=== PATIENT | female | born 2000 | race African-American/Black ===

== ENCOUNTER 2024-01-21 05:33 | Emergency (ER) | payer OTHER ==
--- OUTSIDE RECORDS SUMMARY | 2024-01-21 05:38 | XMS REPORT | Continuity of Care Document ---
Author Name Unknown Address [address] [facility] [address] [place] [address] [facility] thconnect Address [address] [place] [address] Care Team Providers Care Cold Roller Name Role Phone NO PHYSICIAN, . Primary Care Physician Unavailab ASHLEY Rodriguez Attending Clinician Unavailab ROGER Hatfield Attending Clinician Unavailable MAKI BLANCAS Attending Clinician Unavail able TERENCE THAYER Attending Clinician Unavailab sergio Kumar Attending Clinician Unavailable WAQAS MENDOZA Attending Clinician Unavailab sergio Baugh_jace Attending Clinician UnavailPRESTON Peace Attending Clinician Unavailable GC_PHP_Kavya_Harshad Attending Clinician Unavailable OSCAR RAMIREZ Attending Clinician Unavailable LAXMI GE Attending Clinician Unav WAQAS Ortega Attending Clinician Unavailable RHEA VALDEZ Attending Clinician Unavailable MARQUEZ GE Attending Clinician Unav ailLA NENA Humphries Attending Clinician Unavailab Kierra Menjivar Attending Clinician Unavailable Stacy Admitting Clinician Unavailable Amauri_jace Admitting Clinician Unavailabl e GC_PHP_Amaya_Z Admitting Clinician Unavailable Kierra HILLMAN Admitting Clinician Unavailable Payers Payer Name Policy Type Policy Number Effective Date Expirati on Date Source [place] [id number] [facility] [place]ICAID [facility] [id number] 2018 00:00:00 [facility] (MEDICAID HMO) [id number] 2018 00:00:00 Problems Condition Name Condition Details Condition Category Status Onset Date Resolution Date Last Treatment Date Treating Clinician Comments Source Acute sinusitis Acute Sinusitis Problem Active 2023-02 00:00: 00 [facility] Cough Cough Problem Active 2023-02 00:00: 00 [facility] Heart murmur Heart Murmur Problem Active 10-03 00:00: 00 [facility] Electrocar diogram abnormal Electrocar diogram Abnormal Problem Active 10-03 00:00: 00 [facility] Contusion of left upper arm [facility] Injury of head Problem [facility] Hypokalemi a Problem [facility] Left[facility]sided face [facility] Otitis externa [facility] Threatened Problem [facility]omiting Problem [facility] Constipati on [facility] Cyclic vomiting syndrome Problem [facility] Increased bilirubin level Problem [facility] Cyst of ovary Problem [facility] Allergies, Adverse Reactions, Alerts Allergy Name Allergy Type Status Severity Reaction(s) Onset Date Inactive Date Treating Clinician Comments Source KNA Allergy to substanc e Active Unknown 09-09 00:00: 00 [facility] Social History Smoking Status Start Date Stop Date Source Never Smoker [facility] Medications Ordered Medication Name Filled Medication Name Start Date Stop Date Current Medication? Ordering Clinician Indication Dosage Frequency Signature (SIG) Comments Components Source Metoclopram susie Hcl (Reglan 10 Mg*) 10 Mg TAB Metoclopram susie Hcl (Reglan 10 Mg*) 10 Mg TAB 10-31 12:55: 00 Yes 10 [facility] Doxylamine- Pyridoxine (Diclegis) 1 Tab Tablet Doxylamine- Pyridoxine (Diclegis) 1 Tab Tablet 2022-02 11:08: [address] [facility] promethazin e-DM 6.25 mg-15 mg/5 mL oral syrup Take 5 mL every 4 hours by oral route for 5 days. promethazin e-DM 6.25 mg-15 mg/5 mL oral syrup Take 5 mL every 4 hours by oral route for 5 days. No 5mL Q4H promethazi ne-DM 6.25 mg-15 mg/5 mL oral syrup Take 5 mL every 4 hours by oral route for 5 days. [facility] cephalexin 500 mg capsule cephalexin 500 mg capsule No cephalexin 500 mg capsule [facility] doxycycline hyclate 50 mg capsule doxycycline hyclate 50 mg capsule No doxycyclin e hyclate 50 mg capsule [facility] doxycycline monohydrate 100 mg tablet Take 1 tablet twice a day by oral route for 7 days. doxycycline monohydrate 100 mg tablet Take 1 tablet twice a day by oral route for 7 days. No 1 BID doxycyclin e monohydrat e 100 mg tablet Take 1 tablet twice a day by oral route for 7 days. [facility] fluticasone propionate 50 mcg/actuati on nasal spray,suspe nsion [place] 1 spray every day by intranasal route for 30 days. fluticasone propionate 50 mcg/actuati on nasal spray,suspe nsion Beul[place] 1 spray every day by intranasal route for 30 days. No fluticason e propionate 50 mcg/actuat ion nasal spray,susp ension [place]ulah 1 spray every day by intranasal route for 30 days. [facility] methylpredn isolone 4 mg tablets in a dose pack Take 1 dose pk by oral route. methylpredn isolone 4 mg tablets in a dose pack Take 1 dose pk by oral route. No methylpred nisolone 4 mg tablets in a dose pack Take 1 dose pk by oral route. [facility] metronidazo le 500 mg tablet Take 1 tablet twice a day by oral route for 7 days. metronidazo le 500 mg tablet Take 1 tablet twice a day by oral route for 7 days. No 1 BID metronidaz ole 500 mg tablet Take 1 tablet twice a day by oral route for 7 days. [facility] ondansetron 4 mg disintegrat ing tablet ondansetron 4 mg disintegrat ing tablet No ondansetro n 4 mg disintegra ting tablet [facility] Xulane 150 mcg-35 mcg/24 hr transdermal patch Apply 1 patch every week by transdermal route. Xulane 150 mcg-35 mcg/24 hr transdermal patch Apply 1 patch every week by transdermal route. No 1patch( es) Q1W Xulane 150 mcg-35 mcg/24 hr transderma l patch Apply 1 patch every week by transderma l route. [facility] Immunizations Ordered Immunization Name Filled Immunization Name Date Status Comments Source DTaP DTaP Unknown Completed [facility] Hep A, ped/adol, 2 dose Hep A, ped/adol, 2 dose Unknown Completed [facility] pneumococcal conjugate PCV 7 pneumococcal conjugate PCV 7 Unknown Completed [facility] Hib (PRP-T) Hib (PRP-T) Unknown Completed [facility] varicella varicella Unknown Completed [facility] MMR MMR Unknown Completed [facility] HPV9 HPV9 Unknown Completed [facility] influenza, injectable, quadrivalent influenza, injectable, quadrivalent Unknown Completed [facility] HPV, quadrivalent HPV, quadrivalent Unknown Completed [facility] influenza, trivalent, adjuvanted influenza, trivalent, adjuvanted Unknown Completed [facility] influenza, live, intranasal influenza, live, intranasal Unknown Completed [facility] IPV IPV Unknown Completed [facility] Vital Signs Vital Name Observation Time Observation Value Comments S ource Body Weight 2024-01-09 00:00:00 126.7 [lb_av] [facility] Height 2024-01-09 00:00:00 65 [in_i] [facility] BP Diastolic 2024-01-09 00:00:00 84 mm[Hg] [facility] BP Systolic 2024-01-09 00:00:00 134 mm[Hg] [facility] BMI (Body Mass Index) 2024-01-09 00:00:00 21.1 kg/m2 [facility] Height 2023-12-11 00:00:00 65 [in_i] [facility] BP Diastolic 2023-12-11 00:00:00 85 mm[Hg] [facility] Body Weight 2023-12-11 00:00:00 2448 [oz_av] [facility] BMI (Body Mass Index) 2023-12-11 00:00:00 25.5 kg/m2 [facility] BP Systolic 2023-12-11 00:00:00 128 mm[Hg] [facility] Height 2023-11-03 02:37:00 165.271762 cm [facility] Weight 2023-11-03 02:37:00 68.608107 kg [facility] BMI (Body Mass Index) 2023-11-03 02:37:00 25.3 kg/m2 [facility] Height 2023-11-03 02:37:00 165.619330 cm [facility] Weight 2023-11-03 02:37:00 68.392003 kg [facility] BMI (Body Mass Index) 2023-11-03 02:37:00 25.3 kg/m2 [facility] Height 2023-11-01 09:17:00 165.283676 cm [facility] Weight 2023-11-01 09:17:00 68.442970 kg [facility] BMI (Body Mass Index) 2023-11-01 09:17:00 25.3 kg/m2 [facility] Height 2023-09-26 00:00:00 65 [in_i] [facility] BMI (Body Mass Index) 2023-09-26 00:00:00 25.1 kg/m2 [facility] BP Diastolic 2023-09-26 00:00:00 98 mm[Hg] [facility] Body Weight 2023-09-26 00:00:00 150.6 [lb_av] [facility] BP Systolic 2023-09-26 00:00:00 144 mm[Hg] [facility] BP Diastolic 2021-11-26 00:00:00 78 mm[Hg] [facility] Height 2021-11-26 00:00:00 65 [in_i] [facility] BMI (Body Mass Index) 2021-11-26 00:00:00 24.5 kg/m2 [facility] BP Systolic 2021-11-26 00:00:00 111 mm[Hg] [facility] Body Weight 2021-11-26 00:00:00 2355 [oz_av] [facility] BP Diastolic 2020-12-10 00:00:00 69 mm[Hg] [facility] Height 2020-12-10 00:00:00 65 [in_i] [facility] BMI (Body Mass Index) 2020-12-10 00:00:00 23.9 kg/m2 [facility] BP Systolic 2020-12-10 00:00:00 127 mm[Hg] [facility] Body Weight 2020-12-10 00:00:00 143.8 [lb_av] [facility] Height 2019-12-12 00:00:00 65 [in_i] [facility] BMI (Body Mass Index) 2019-12-12 00:00:00 26.6 kg/m2 [facility] Body Weight 2019-12-12 00:00:00 2560 [oz_av] [facility] Encounters Start Date/Time End Date/Time Encounter Type Admission Type Attending [facility] Care Facility Care Department Encounter ID Source 2024-01-09 00:00:00 2024-01-09 00:00:00 Preston Diaz MD: [address], [address], [place] [address] , Ph. [phone] [facility] [id number] [facility] 2023-12-31 07:19:00 2023-12-31 09:50:00 Emergency ER ASHLEY KEY [facility] [id number] [facility] 2023-12-11 00:00:00 2023-12-11 00:00:00 Waqas Mendoza, DISPENSER OPERATOR: [address], [address], [place] [address] , Ph. [facility] [id number] [facility] 2023-11-03 02:29:00 2023-11-03 06:33:00 Emergency ER VIRAJ ROGER [facility] [id number] [facility] 2023-11-03 02:29:00 2023-11-03 06:33:00 Departed Emergency Room [facility] [id number] [facility] 2023-11-01 09:03:00 2023-11-01 13:08:00 Emergency ER MAKI BLANCAS [facility] [id number] [facility] 2023-11-01 09:03:00 2023-11-01 13:08:00 Departed Emergency Room [facility] [id number] [facility] 2023-09-26 00:00:00 2023-09-26 00:00:00 Waqas Loaiza, DISPENSER OPERATOR: [address], [place] [address] , Ph. [facility] [id number] [facility] 2022-12-07 21:51:00 2022-12-08 00:22:00 Emergency ER TERENCE THAYER [facility] [id number] [facility] 2022-11-06 08:32:00 2022-11-06 11:25:00 Emergency ER ASHLEY KEY [facility] [id number] [facility] 2021-11-29 00:00:00 2021-11-29 00:00:00 Outpatient Hawkins_M [facility] MMG [id number] [facility] 2021-11-29 00:00:00 2021-11-29 00:00:00 Outpatient Hawkins_M MMG MMG [id number] [facility] 2021-11-29 00:00:00 2021-11-29 00:00:00 Outpatient Hawkins_M MMG MMG [id number] [facility] 2021-11-26 10:05:00 2021-11-26 10:05:00 Outpatient WAQAS BANGURA [facility] [id number] [facility] 2021-11-26 00:00:00 2021-11-26 00:00:00 Outpatient Hawkins_M MMG MMG [id number] [facility] 2021-11-26 00:00:00 2021-11-26 00:00:00 Waqas Mendoza, DISPENSER OPERATOR: [address], [place] [address] , Ph. MMG [place] [facility] [id number] [facility] 2021-11-25 00:00:00 2021-11-25 00:00:00 Outpatient Hawkins_M MMG MMG [id number] [facility] 2021-11-18 00:00:00 2021-11-18 00:00:00 Outpatient Hawkins_M MMG MMG [id number] [facility] 2020-12-10 05:43:00 2020-12-10 05:43:00 Outpatient Obisesan_ad ekunbi [facility] [id number] [facility] 2020-12-10 00:00:00 2020-12-10 00:00:00 Waqas Loaiza, DISPENSER OPERATOR: [address], [place] [address] , Ph. [facility] DINING ROOM CASHIER [id number] [facility] 2020-12-09 09:48:00 2020-12-09 09:48:00 Outpatient Obisesan_ad ekunbi [facility] [id number] [facility] 2020-12-07 02:00:00 2020-12-07 02:00:00 Outpatient Obisesan_ad ekunbi [facility] [id number] [facility] 2020-09-26 17:13:00 2020-09-26 21:02:00 Emergency ER PRESTON DALY [facility] [id number] [facility] 2020-03-23 00:00:00 2020-03-23 00:00:00 Outpatient GC_PHP_Amay a_Z PRIV PRIV [id number] [facility] 2019-12-21 11:09:00 2019-12-21 11:09:00 Outpatient Obisesan_ad ekunbi [facility] [id number] [facility] 2019-12-21 00:00:00 2019-12-21 00:00:00 Nereyda Mota, DISPENSER OPERATOR: [address], [place] [id number] , [facility]. [facility] [id number] [facility] 2019-12-12 09:32:00 2019-12-12 09:32:00 [id number] [facility] 2019-12-12 00:00:00 2019-12-12 00:00:00 Jace Baugh, DISPENSER OPERATOR: [address] [place] [address] , Ph. [facility] [id number] [facility] 2019-01-01 09:03:00 2019-01-01 09:03:00 Outpatient BRUNO RAMIRZE OSCAR [facility] [id number] [facility] 2017 08:05:00 2017 08:05:00 Outpatient BRUNO BLANKENSHIP LAXMI Epps [facility] [id number] [facility] 2015-08-13 13:21:00 2015-08-13 13:21:00 Outpatient BRUNO WAQAS LOAIZA [facility] [id number] [facility] 2013-08-03 20:10:00 2013-08-03 21:50:00 Emergency ER RHEA VALDEZ [facility] [id number] [facility] 2010-04-26 07:30:00 2010-04-26 07:30:00 Outpatient BRUNO EppsSALLIEKAYLIN [facility] [id number] [facility] 2008-02-01 17:38:00 2008-02-01 21:27:00 Emergency ER LA NENA ROMANO [facility] [id number] [facility] 2003-11-28 11:01:00 2003-11-28 11:01:00 Outpatient MARQUEZ MCMAHAN [facility] [id number] [facility] 2002 15:55:00 2002 15:55:00 Outpatient Kierra SALAZAR [facility] [id number] [facility] 2002 15:02:00 2002 12:45:00 Inpatient Kierra PARTIDA [facility] [id number] [facility] Results Test Description Test Time Test Comments Results Result Co mments Source [facility], [id number] 16:07:05* Test Item Value Reference Range Interpretation Comme nts Leukocytes (test code = Leukocytes) Small Nitrite (test code = Nitrite) negative Urobilinogen (test code = Urobilinogen) 1 Protein (test code = Protein) Negative pH (test code = pH) 7.0 Blood (test code = Blood) Moderate Specific Campton (test code = Specific [place]pton) 1.020 Ketone (test code = Ketone) Negative Bilirubin (test code = Bilirubin) Negative Glucose (test code = Glucose) Negative Appearance (test code = Appearance) Clear Color (test code = Color) Yellow [facility] Gr[facility]regnancy test, [id number] 16:06:15* Test Item Value Reference Range Interpretation Comme nts Test (test code = Test) negative [facility],urine pres id [id number] 09:08:00* Test Item Value Reference Range Interpretation Comme nts culture,urine (test code = culture,urine) SCANT SKIN СВЕТЛАНА PRESENT. PATHOGEN NOT PRESENT AT [address] [facility] Groupchl/[id number] 10:06:00* Test Item Value Reference Range Interpretation Comme nts NG (test code = NG) NG NOT DETECTED CT (test code = CT) CT DETECTED [facility] GroupBilirubin.direct [Mass/volume] in Serum or Plasma 2023-12-31 09:20:00* Test Item Value Reference Range Interpretation Comme nts bilirubin,direct (test code = bilirubin,direct) 0.37 mg/dL 0.0-0.3 H [facility] Hospitalflu/RSV/covid [id number] 08:43:00* Test Item Value Reference Range Interpretation Comme nts RSV xpress (test code = RSV xpress) RSV NEGATIVE covid-19 inhouse (test code = covid-19 inhouse) flu A (test code = flu A) FLU A NEGATIVE flu B (test code = flu B) FLU B NEGATIVE [facility] HospitalComprehensive [facility] 2000 panel - Serum or Plasma 2023-12-31 08:27:00* Test Item Value Reference Range Interpretation Comme nts glucose (test code = glucose) 109 mg/dL 74-106 H blood urea nitrogen (test co de = blood urea nitrogen) 11 mg/dL 6-20 osmolality calculated,serum (test code = osmolality calculated,serum) 276 mOsm/kg 280-300 L creatinine (test code = creatinine) 0.63 mg/dL 0.50-0.90 glomerular filtration rate ( test code = glomerular filtration rate) > 60.00 BUN/creatinine ratio (test c ode = BUN/creatinine ratio) 17.5 12.0-20.0 sodium level (test code = so dium level) 138 mmol/L 135-145 potassium level (test code = potassium level) 3.7 mmol/L 3.5-5.2 chloride level (test code = chloride level) 100 mmol/L 98-108 CO2 (test code = CO2) 25 mmol/L 21-32 anion gap (test code = anion gap) 16.7 mEq/L 12.0-20.0 calcium level (test code = calcium level) 9.1 mg/dL 8.6-10.0 total protein (test code = t otal protein) 8.0 g/dL 6.6-8.7 albumin (test code = albumin) 4.2 g/dL 3.5-5.2 globulin (test code = globulin) 3.8 g/dL 1.5-4.5 A/G ratio (test code = A/G ratio) 1.1 >1.0 bilirubin,total (test code = bilirubin,total) 2.1 mg/dL 0.0-1.2 H AST/SGOT (test code = AST/SGOT) 16 U/L 15-32 ALT/SGPT (test code = ALT/SGPT) 9 U/L 0-33 alkaline phosphatase, total (test code = alkaline phosphatase, total) 78 U/L 35-105 [facility]2024-11-24 08:27:00* Test Item Value Reference Range Interpretation Comme [facility] lipase (test code = lipase) 13 U/L 13-60 [facility] panel drug [id number] 08:14:00* Test Item Value Reference Range Interpretation Comme nts drug screen note (test code = drug screen note) . amphetamines screen urine (t est code = amphetamines screen urine) NEGATIVE negative barbiturates, urine quant. ( test code = barbiturates, urine quant.) NEGATIVE negative benzodiazepines screen urine (test code = benzodiazepines screen urine) NEGATIVE negative cannabinoids (test code = cannabinoids) POSITIVE negative A cocaine (test code = cocaine) NEGATIVE negative opiates (test code = opiates) NEGATIVE negative phencyclidine (test code = phencyclidine) NEGATIVE negative methadone (test code = methadone) NEGATIVE negative propoxyphene (test code = propoxyphene) NEGATIVE negative oxycodone (test code = oxycodone) NEGATIVE negative hydrocodone (test code = hydrocodone) NEGATIVE negative fentanyl (test code = fentanyl) NEGATIVE negative [facility] W Auto Differential panel - [id number] 08:09:00 * Test Item Value Reference Range Interpretation Comme [facility] white blood count (test code = white blood count) 9.5 K/uL 4.0-11.5 red blood count (test code = red blood count) 4.46 M/uL 3.80-5.20 hemoglobin (test code = hemoglobin) 12.7 g/dL 10.5-15.7 hematocrit (test code = hematocrit) 39.6 % 34.0-50.0 mean corpuscular volume (christian t code = mean corpuscular volume) 88.8 fL 86.0-100.0 mean corpuscular hemoglobin (test code = mean corpuscular hemoglobin) 28.5 pg 26.2-33.4 mean corpuscular HGB conc (t est code = mean corpuscular HGB conc) 32.1 g/dL 30.0-34.0 red cell distribution width (test code = red cell distribution width) 14.5 % 12.0-15.5 platelet count (test code = platelet count) 292 K/uL 165-450 mean platelet volume (test c ode = mean platelet volume) 9.4 fL 9.4-12.6 neutrophils % (test code = neutrophils %) 79.6 % 44.4-80.1 Ig% (test code = Ig%) 0.4 % 0.0-0.4 lymphocyte% (test code = lymphocyte%) 11.7 % 10.0-50.0 mono % (test code = mono %) 8.1 % 3.6-12.0 eos % (test code = eos %) 0 % 0.0-5.4 basophil % (test code = baso ngozi %) 0.2 % 0.1-1.2 absolute neutrophil count (t est code = absolute neutrophil count) 7.59 K/uL 1.56-6.13 H Ig# (test code = Ig#) 0.04 K/uL 0.00-0.03 H lymph # (test code = lymph #) 1.12 K/uL 1.18-3.74 L mono # (test code = mono #) 0.77 K/uL 0.24-0.86 eos # (test code = eos #) 0.00 K/uL 0.04-0.36 L basophil # (test code = baso ngozi #) 0.02 K/uL 0.01-0.08 NRBC% (test code = NRBC%) 0 /100 WBC 0-0.2 NRBC# (test code = NRBC#) 0 K/uL [facility] test, [id number] 08:02:00* Test Item Value Reference Range Interpretation Comme nts HCG qualitative,urine (test code = HCG qualitative,urine) NEGATIVE neg [facility] [id number] 07:59:00* Test Item Value Reference Range Interpretation Comme nts color, urine (test code = color, urine) DK. RED appearance, urine (test code = appearance, urine) CLOUDY clear urine glucose (test code = urine glucose) 1+ (100 mg/dL) negative A bilirubin, urine (test code = bilirubin, urine) NEGATIVE negative ketone, urine (test code = ketone, urine) SMALL, 15 MG/DL negative A specific gravity,urine (test code = specific gravity,urine) 1.020 1.003-1.030 blood urine (test code = blood urine) LARGE negative A pH,urine (test code = pH,urine) 6.500 5-9 protein urine (UA) (test code = protein urine (UA)) 3+ (>300 mg/dL) negative A urobilinogen, urine (test code = urobilinogen, urine) 4.0 E.U./dL 0.2-1.0 nitrate, urine (test code = nitrate, urine) POSITIVE negative A urine leukocyte esterase (test code = urine leukocyte esterase) MODERATE negative A RBC, urine (test code = RBC, urine) UNABLE TO REPORT 0-5 WBC, urine (test code = WBC, urine) UNABLE TO REPORT 0-5 epithelial cell (test code = epithelial cell) UNABLE TO REPORT 0-5 bacteria, urine (test code = bacteria, urine) UNABLE TO REPORT none detect urine culture added? (test code = urine culture added?) YES [facility] HospitalInfluenza virus A and B and SARS-CoV+SARS-CoV-2 (COVID- 19) Ag panel - Upper respiratory specimen byRapid tpmvlgalqhc3993-10-87 14:07:32 * Test Item Value Reference Range Interpretation Comme nts RAPID SARS COV (test code = RAPID SARS COV) negative RAPID FLU A (test code = RAP ID FLU A) negative RAPID FLU B (test code = RAP ID FLU B) negative [facility] HospitalColor of Urine by Sfzi1325-44-08 06:42:00* Test Item Value Reference Range Interpretation Comme nts Urine Color (test code = 25920-0) YELLOW [facility] CtrAppearance of Lbkpa7959-89-23 06:42:00* Test Item Value Reference Range Interpretation Comme nts Urine Appearance (test code = 5767-9) CLEAR [facility] CtrUrine glucose hyucwsuro9025-01-96 06:42:00* Test Item Value Reference Range Interpretation Comme nts Urine Glucose (UA) (test cod e = 2349-9) NEGATIVE [facility] CtrBilirubin [id number] 06:42:00* Test Item Value Reference Range Interpretation Comme nts Urine Bilirubin (test code = 576236551) NEGATIVE [facility] CtrKetones io7030-17-15 06:42:00* Test Item Value Reference Range Interpretation Comme nts Urine Ketones (test code = 35490701) 1+(SMALL) [facility] CtrSpecific gravity of Urine by Automated test strip 2023-11-03 06:42:00* Test Item Value Reference Range Interpretation Comme nts Urine Specific [place] (test code = 27328-2) 1.[address] [facility] CtrUrine blood wucagdzzf5615-70-11 06:42:00* Test Item Value Reference Range Interpretation Comme nts Urine Blood (test code = 44079-5) NEGATIVE [facility] CtrpH hb8569-57-70 06:42:00* Test Item Value Reference Range Interpretation Comme nts Urine pH (test code = 2756-5) 6.[address] [facility] CtrProtein nx5551-94-57 06:42:00* Test Item Value Reference Range Interpretation Comme nts Urine Protein (test code = 98638616) TRACE [facility] CtrUrobilinogen, urine, yr4685-38-08 06:42:00* Test Item Value Reference Range Interpretation Comme nts Urine Urobilinogen (test cod e = 064054871) 1.[address] [facility] CtrUrine nitrate jvxiplqat6973-28-29 06:42:00* Test Item Value Reference Range Interpretation Comme nts Urine Nitrate (test code = 00399-3) NEGATIVE [facility] CtrUrine leukocyte esterase ayepboici6874-25-10 06:42:00* Test Item Value Reference Range Interpretation Comme nts Urine Leukocyte Esterase (te st code = 378680912) NEGATIVE [facility] CtrRBC count ur vvvx6127-69-89 06:42:00* Test Item Value Reference Range Interpretation Comme nts Urine RBC (test code = 798-9) NONE SEEN [facility] CtrUrine examination for white blood cells (WBC) 2023-11-03 06:42:00* Test Item Value Reference Range Interpretation Comme nts Urine WBC (test code = 258576540) NONE SEEN [facility] CtrBacteria detection in urine sediment by light sorwajgcam2015-28-47 06:42:00* Test Item Value Reference Range Interpretation Comme nts Urine Bacteria (test code = 43729-8) None Detected [facility] CtrColor of Urine by Xmiw7234-37-04 06:42:00* Test Item Value Reference Range Interpretation Comme nts Urine Color (test code = 03472-0) YELLOW [facility] CtrAppearance of Jeedy9526-75-39 06:42:00* Test Item Value Reference Range Interpretation Comme nts Urine Appearance (test code = 5767-9) CLEAR [facility] CtrUrine glucose gxztbtwie6168-89-24 06:42:00* Test Item Value Reference Range Interpretation Comme nts Urine Glucose (UA) (test cod e = 2349-9) NEGATIVE [facility] CtrBilirubin [id number] 06:42:00* Test Item Value Reference Range Interpretation Comme nts Urine Bilirubin (test code = 276092173) NEGATIVE [facility] CtrKetones ve9126-66-54 06:42:00* Test Item Value Reference Range Interpretation Comme nts Urine Ketones (test code = 56884678) 1+(SMALL) [facility] CtrSpecific gravity of Urine by Automated test strip 2023-11-03 06:42:00* Test Item Value Reference Range Interpretation Comme nts Urine Specific [place] (test code = 08714-1) 1.010 [facility] HospitalU[facility] blood rcxmhtutd0529-05-19 06:42:00* Test Item Value Reference Range Interpretation Comme nts Urine Blood (test code = 29237-4) NEGATIVE [facility] CtrpH so6729-07-77 06:42:00* Test Item Value Reference Range Interpretation Comme nts Urine pH (test code = 2756-5) 6.[address] [facility] CtrProtein gv4267-60-18 06:42:00* Test Item Value Reference Range Interpretation Comme nts Urine Protein (test code = 85234029) TRACE [facility] CtrUrobilinogen, urine, [id number] 06:42:00* Test Item Value Reference Range Interpretation Comme nts Urine Urobilinogen (test cod e = 582651244) 1.0 [facility] HospitalU[facility] nitrate wfngysmqn2871-26-75 06:42:00* Test Item Value Reference Range Interpretation Comme nts Urine Nitrate (test code = 16190-9) NEGATIVE [facility] HospitalUrine leukocyte esterase vvesrhfsp1890-03-61 06:42:00* Test Item Value Reference Range Interpretation Comme nts Urine Leukocyte Esterase (te st code = 286468884) NEGATIVE [facility] CtrRBC count ur ibbf3487-16-45 06:42:00* Test Item Value Reference Range Interpretation Comme nts Urine RBC (test code = 798-9) NONE SEEN [facility] CtrUrine examination for white blood cells (WBC) 2023-11-03 06:42:00* Test Item Value Reference Range Interpretation Comme nts Urine WBC (test code = 711227600) NONE SEEN [facility] CtrBacteria detection in urine sediment by light kidxihgwdn0813-62-04 06:42:00* Test Item Value Reference Range Interpretation Comme nts Urine Bacteria (test code = 60085-0) None Detected [facility] CtrAmphetamine ur qcmagv6510-85-09 06:32:00* Test Item Value Reference Range Interpretation Comme nts Urine Amphetamines Screen (t est code = 60490-8) NEGATIVE [facility] KalPfeprhmxo2440-45-16 06:32:00* Test Item Value Reference Range Interpretation Comme nts Methadone Level (test code = QLZ6157) NEGATIVE [facility] CtrBenzodiazepines screen fs8664-26-66 06:32:00* Test Item Value Reference Range Interpretation Comme nts Urine Benzodiazepines Screen (test code = 414495195) NEGATIVE [facility] CtrCannabinoids (5-bpctoty-ZLU) hahtggzxvcs6799-13-15 06:32:00* Test Item Value Reference Range Interpretation Comme nts Urine Cannabinoids (test cod e = 841141974) POSITIVE [facility] CtrCocaine metabolite hkpati3157-48-05 06:32:00* Test Item Value Reference Range Interpretation Comme nts Urine Cocaine Metabolite (te st code = 958628337) NEGATIVE [facility] CtrOpiates xccef3624-98-16 06:32:00* Test Item Value Reference Range Interpretation Comme nts Urine Opiates Screen (test c ode = 233523534) NEGATIVE [facility] CtrUrine hydrocodone measurement (mass/volume) 2023-11-03 06:32:00* Test Item Value Reference Range Interpretation Comme nts Hydrocodone Level (test code = 3681-4) NEGATIVE [facility] HospitalUrine fentanyl measurement by confirmatory method (mass/volume)2023-11-03 06:32:00* Test Item Value Reference Range Interpretation Comme nts Urine Fentanyl Screen (test code = 61994-7) NEGATIVE [facility] CtrPhencyclidine (PCP) rz5599-87-29 06:32:00* Test Item Value Reference Range Interpretation Comme nts Urine Phencyclidine (PCP) Le kt (test code = 335316073) NEGATIVE [facility] CtrPropoxyphene [Mass/volume] in Gumwh6128-83-88 06:32:00* Test Item Value Reference Range Interpretation Comme nts Propoxyphene Level (test cod e = 3545-1) NEGATIVE [facility] CtroxyCODONE [Mass/volume] in Phxbb3698-45-25 06:32:00* Test Item Value Reference Range Interpretation Comme nts Oxycodone Level (test code = 04451-2) NEGATIVE [facility] CtrAmphetamine ur knaejy7421-95-34 06:32:00* Test Item Value Reference Range Interpretation Comme [facility] Urine Amphetamines Screen (t est code = 23211-8) NEGATIVE [facility] MzvZdtuzqxen4824-46-83 06:32:00* Test Item Value Reference Range Interpretation Comme nts Methadone Level (test code = FAX6424) NEGATIVE [facility] CtrBenzodiazepines screen zs8353-05-10 06:32:00* Test Item Value Reference Range Interpretation Comme [facility] Urine Benzodiazepines Screen (test code = 877133042) NEGATIVE [facility] CtrCannabinoids (5-wfrakub-JDS) tnhwddwnywz8293-43-70 06:32:00* Test Item Value Reference Range Interpretation Comme nts Urine Cannabinoids (test cod e = 003384534) POSITIVE [facility] CtrCocaine metabolite zesejw1243-21-95 06:32:00* Test Item Value Reference Range Interpretation Comme nts Urine Cocaine Metabolite (te st code = 515252297) NEGATIVE [facility] CtrOpiates moaol3859-37-48 06:32:00* Test Item Value Reference Range Interpretation Comme nts Urine Opiates Screen (test c ode = 499937314) NEGATIVE [facility] CtrUrine hydrocodone measurement (mass/volume) 2023-11-03 06:32:00* Test Item Value Reference Range Interpretation Comme nts Hydrocodone Level (test code = 3681-4) NEGATIVE [facility] HospitalU[facility] fentanyl measurement by confirmatory method (mass/volume)2023-11-03 06:32:00* Test Item Value Reference Range Interpretation Comme nts Urine Fentanyl Screen (test code = 01171-8) NEGATIVE [facility] CtrPhencyclidine (PCP) vh0594-70-84 06:32:00* Test Item Value Reference Range Interpretation Comme [facility] Urine Phencyclidine (PCP) Le kt (test code = 434471528) NEGATIVE [facility] CtrPropoxyphene [Mass/volume] in Vogwn8302-38-88 06:32:00* Test Item Value Reference Range Interpretation Comme nts Propoxyphene Level (test cod e = 3545-1) NEGATIVE [facility] CtroxyCODONE [Mass/volume] in Buzox5246-92-71 06:32:00* Test Item Value Reference Range Interpretation Comme nts Oxycodone Level (test code = 07290-2) NEGATIVE [facility] CtrBilirubin rbbxnc7634-43-69 03:56:00* Test Item Value Reference Range Interpretation Comme nts Direct Bilirubin (test code = 1968-7) 0.[address] [facility] CtrBilirubin ivtnqt9785-76-86 03:56:00* Test Item Value Reference Range Interpretation Comme nts Direct Bilirubin (test code = 1967-7) 0.[address] [facility] CtrBilirubin qzznf9084-59-11 03:43:00* Test Item Value Reference Range Interpretation Comme nts Total Bilirubin (test code = BMY1606) 2.[address] [facility] CtrBilirubin vpfuo8051-39-31 03:43:00* Test Item Value Reference Range Interpretation Comme nts Total Bilirubin (test code = XTI0784) 2.[address] [facility] CtrSerum or plasma glucose measurement (mass/volume) 2023-11-03 03:33:00* Test Item Value Reference Range Interpretation Comme nts Random Glucose (test code = 2345-7) [address] [facility] CtrSerum or plasma urea nitrogen measurement (mass/volume)2023-11-03 03:33:00* Test Item Value Reference Range Interpretation Comme nts Blood Urea Nitrogen (test co de = 3094-0) [address] [facility] WmiKSX3693-21-03 03:33:00* Test Item Value Reference Range Interpretation Comme nts Aspartate Amino Transf (AST/ SGOT) (test code = PWV9882) [address] [facility] CtrEstimated glomerular filtration rate (GFR) ztjfcshpyshbp3965-48-91 03:33:00* Test Item Value Reference Range Interpretation Comme [facility] Glomerular Filtration Rate C alc (test code = 630872821) > 60.[address] [facility] CtrBUN/creatinine shvpu8665-02-68 03:33:00* Test Item Value Reference Range Interpretation Comme nts BUN/Creatinine Ratio (test c ode = 80533360) 14.[address] [facility] CtrTotal mmqhqky2233-92-80 03:33:00* Test Item Value Reference Range Interpretation Comme nts Total Protein (test code = KJC1557) 8.[address] [facility] PkcWZ97686-89-45 03:33:00* Test Item Value Reference Range Interpretation Comme nts Carbon Dioxide Level (test c ode = 57255649) [address] [facility] CtrAnion gap pmqhxpoater7195-22-15 03:33:00* Test Item Value Reference Range Interpretation Comme nts Anion Gap (test code = 48125043) 19.[address] [facility] CtrCalcium rvunb4282-42-57 03:33:00* Test Item Value Reference Range Interpretation Comme nts Calcium Level (test code = 26905616) 9.[address] [facility] CtrGlobulin pji2901-11-15 03:33:00* Test Item Value Reference Range Interpretation Comme nts Globulin (test code = 952555707) 3.[address] [facility] CtrALT (SGPT) ser/pukn0464-51-34 03:33:00* Test Item Value Reference Range Interpretation Comme nts Alanine Aminotransferase (AL T/SGPT) (test code = 1742-6) [address] [facility] DiyEsqcjl1060-49-11 03:33:00* Test Item Value Reference Range Interpretation Comme nts Lipase (test code = 60662498) [address] [facility] CtrALP ser/wosy2338-54-49 03:33:00* Test Item Value Reference Range Interpretation Comme nts Total Alkaline Phosphatase ( test code = 6768-6) [address] [facility] CtrSerum or plasma glucose measurement (mass/volume) 2023-11-03 03:33:00* Test Item Value Reference Range Interpretation Comme nts Random Glucose (test code = 2345-7) [address] [facility] CtrSerum or plasma urea nitrogen measurement (mass/volume)2023-11-03 03:33:00* Test Item Value Reference Range Interpretation Comme nts Blood Urea Nitrogen (test co de = 3094-0) [address] [facility] NkuDKE2575-61-15 03:33:00* Test Item Value Reference Range Interpretation Comme nts Aspartate Amino Transf (AST/ SGOT) (test code = QTX0830) [address] [facility] CtrEstimated glomerular filtration rate (GFR) rrtafyegytaab4848-21-90 03:33:00* Test Item Value Reference Range Interpretation Comme [facility] Glomerular Filtration Rate C alc (test code = 105502957) > 60.[address] [facility] CtrBUN/creatinine kxyxj7207-93-98 03:33:00* Test Item Value Reference Range Interpretation Comme nts BUN/Creatinine Ratio (test c ode = 37781541) 14.[address] [facility] CtrTotal qtaoebc8899-17-90 03:33:00* Test Item Value Reference Range Interpretation Comme nts Total Protein (test code = VRL1783) 8.[address] [facility] SoiDK32580-84-79 03:33:00* Test Item Value Reference Range Interpretation Comme nts Carbon Dioxide Level (test c ode = 93773632) [address] [facility] CtrAnion gap slbyqrmiszb9517-38-74 03:33:00* Test Item Value Reference Range Interpretation Comme nts Anion Gap (test code = 92367436) 19.[address] [facility] CtrCalcium dokgk4250-04-06 03:33:00* Test Item Value Reference Range Interpretation Comme nts Calcium Level (test code = 73472802) 9.[address] [facility] CtrGlobulin aiu2737-51-95 03:33:00* Test Item Value Reference Range Interpretation Comme nts Globulin (test code = 685575032) 3.[address] [facility] CtrALT (SGPT) ser/tawi3025-36-70 03:33:00* Test Item Value Reference Range Interpretation Comme nts Alanine Aminotransferase (AL T/SGPT) (test code = 1742-6) [address] [facility] MguXhglie0293-86-57 03:33:00* Test Item Value Reference Range Interpretation Comme nts Lipase (test code = 07214943) [address] [facility] CtrALP ser/yyfw8904-36-90 03:33:00* Test Item Value Reference Range Interpretation Comme nts Total Alkaline Phosphatase ( test code = 6768-6) [address] [facility] CtrSerum beta human chorionic gonadotropic (BhCG) hqwwaxqer4927-32-30 03:27:00* Test Item Value Reference Range Interpretation Comme nts Serum Test, Qualit ative (test code = 2110-5) NEGATIVE [facility] CtrSerum beta human chorionic gonadotropic (BhCG) pfnttmfwt9454-07-05 03:27:00* Test Item Value Reference Range Interpretation Comme [facility] Serum Test, Qualit ative (test code = 2110-5) NEGATIVE [facility] CtrMean platelet bcokic3855-87-37 03:14:00* Test Item Value Reference Range Interpretation Comme nts Mean Platelet Volume (test c ode = 42349225) 9.[address] [facility] CtrNeutrophils seg % jdc4430-40-12 03:14:00* Test Item Value Reference Range Interpretation Comme nts Neutrophils (%) (Auto) (test code = 75152-6) 80.[address] [facility] CtrAbsolute immature granulocyte aeenx0447-46-46 03:14:00* Test Item Value Reference Range Interpretation Comme nts Absolute Immature Granulocyt e (auto (test code = 48178-0) 0.[address] [facility] CtrBlood band neutrophils count (number/volume) 2023-11-03 03:14:00* Test Item Value Reference Range Interpretation Comme nts Neutrophils # (Auto) (test c ode = 66324-3) 8.[address] [facility] CtrAbsolute lymphocyte vxrps2926-35-10 03:14:00* Test Item Value Reference Range Interpretation Comme nts Lymphocytes # (Auto) (test c ode = 13517-5) 1.[address] [facility] CtrAbsolute basophil umdmy8689-25-00 03:14:00* Test Item Value Reference Range Interpretation Comme nts Basophils # (Auto) (test cod e = 35314593) 0.03 [facility] NRBC mjzmm8240-25-26 03:14:00* Test Item Value Reference Range Interpretation Comme nts Nucleated Red Blood Cells # (test code = 446740206) [address] [facility] CtrAbsolute eosinophil tuhid7052-21-98 03:14:00* Test Item Value Reference Range Interpretation Comme nts Eosinophils # (Auto) (test c ode = YZM6312) 0.[address] [facility] CtrRBC uxuog6988-24-76 03:14:00* Test Item Value Reference Range Interpretation Comme [facility] Red Blood Count (test code = 76599898) 4.[address] [facility] GoaNlrznwrepi6854-75-13 03:14:00* Test Item Value Reference Range Interpretation Comme [facility] Hematocrit (test code = 07631147) 41.[address] [facility] CtrMCV (mean corpuscular volume) determination 2023-11-03 03:14:00* Test Item Value Reference Range Interpretation Comme [facility] Mean Corpuscular Volume (christian t code = 30521-4) 89.[address] [facility] CtrMean corpuscular hemoglobin (MCH) determination 2023-11-03 03:14:00* Test Item Value Reference Range Interpretation Comme [facility] Mean Corpuscular Hemoglobin (test code = 77971947) 29.[address] [facility] CtrMean corpuscular hemoglobin concentration (MCHC) rtnyjaisiovsi8355-05-65 03:14:00* Test Item Value Reference Range Interpretation Comme [facility] Mean Corpuscular Hemoglobin Concent (test code = 92161667) 32.[address] [facility] CtrRBC distribution width coefficient of variation 2023-11-03 03:14:00* Test Item Value Reference Range Interpretation Comme [facility] Red Cell Distribution Width (test code = 92592347) 13.[address] [facility] CtrPlatelet xrnzr3217-02-14 03:14:00* Test Item Value Reference Range Interpretation Comme [facility] Platelet Count (test code = 79200631) [address] [facility] CtrMean platelet fmbmjg8091-13-89 03:14:00* Test Item Value Reference Range Interpretation Comme [facility] Mean Platelet Volume (test c ode = 92431748) 9.[address] [facility] CtrNeutrophils seg % rey9360-87-46 03:14:00* Test Item Value Reference Range Interpretation Comme [facility] Neutrophils (%) (Auto) (test code = 32729-6) 80.[address] [facility] CtrAbsolute immature granulocyte zusyy0746-12-14 03:14:00* Test Item Value Reference Range Interpretation Comme [facility] Absolute Immature Granulocyt e (auto (test code = 31563-9) 0.04 [facility]Blood [facility] neutrophils count (number/volume) 2023-11-03 03:14:00* Test Item Value Reference Range Interpretation Comme [facility] Neutrophils # (Auto) (test c ode = 32883-7) 8.[address] [facility] CtrAbsolute lymphocyte tatbh6695-61-18 03:14:00* Test Item Value Reference Range Interpretation Comme [facility] Lymphocytes # (Auto) (test c ode = 13085-6) 1.[address] [facility] CtrAbsolute basophil flxja6561-82-31 03:14:00* Test Item Value Reference Range Interpretation Comme [facility] Basophils # (Auto) (test cod e = 60394267) 0.[address] [facility] CtrAbsolute NRBC fuqre7173-86-07 03:14:00* Test Item Value Reference Range Interpretation Comme [facility] Nucleated Red Blood Cells # (test code = 852947728) [address] [facility] CtrAbsolute eosinophil vgosv6459-08-43 03:14:00* Test Item Value Reference Range Interpretation Comme [facility] Eosinophils # (Auto) (test c ode = JZU4326) 0.[address] [facility] CtrRBC wqqwk8596-63-94 03:14:00* Test Item Value Reference Range Interpretation Comme [facility] Red Blood Count (test code = 49748586) 4.[address] [facility] LxfHagcetxywd7753-66-72 03:14:00* Test Item Value Reference Range Interpretation Comme [facility] Hematocrit (test code = 29623275) 41.[address] [facility] CtrMCV (mean corpuscular volume) determination 2023-11-03 03:14:00* Test Item Value Reference Range Interpretation Comme [facility] Mean Corpuscular Volume (christian t code = 75553-5) 89.[address] [facility] CtrMean corpuscular hemoglobin (MCH) determination 2023-11-03 03:14:00* Test Item Value Reference Range Interpretation Comme [facility] Mean Corpuscular Hemoglobin (test code = 09057480) 29.0 [facility]Mean corpuscular hemoglobin concentration (MCHC) ayswahfzctmzx8431-86-29 03:14:00* Test Item Value Reference Range Interpretation Comme [facility] Mean Corpuscular Hemoglobin Concent (test code = 19114981) 32.[address] [facility] CtrRBC distribution width coefficient of variation 2023-11-03 03:14:00* Test Item Value Reference Range Interpretation Comme [facility] Red Cell Distribution Width (test code = 52469249) 13.[address] [facility] CtrPlatelet bxxdt9799-65-94 03:14:00* Test Item Value Reference Range Interpretation Comme [facility] Platelet Count (test code = [id number]) [address] [facility] CtrSerum beta human chorionic gonadotropic (BhCG) [id number] 10:16:00* Test Item Value Reference Range Interpretation Comme [facility] Serum Test, Qualit ative (test code = 2110-5) NEGATIVE [facility] CtrAutomated epithelial cells count in urine sediment (number/area)2023-11-01 10:12:00* Test Item Value Reference Range Interpretation Comme nts Urine Epithelial Cells (test code = 56803-3) More than 20/HPF [facility] CtrUrine casts detection by automated method 2023-11-01 10:12:00* Test Item Value Reference Range Interpretation Comme nts Urine Casts (test code = 12662-9) 0-[address] [facility] CtrRBC count ur [id number] 10:12:00* Test Item Value Reference Range Interpretation Comme nts Urine RBC (test code = 798-9) 0-[address] [facility] CtrUrine examination for white blood cells (WBC) 2023-11-01 10:12:00* Test Item Value Reference Range Interpretation Comme nts Urine WBC (test code = 043318363) 3-[address] [facility] CtrAutomated epithelial cells count in urine sediment (number/area)2023-11-01 10:12:00* Test Item Value Reference Range Interpretation Comme nts Urine Epithelial Cells (test code = 62088-7) More than 20/HPF [facility] CtrBacteria detection in urine sediment by light [id number] 10:12:00* Test Item Value Reference Range Interpretation Comme nts Urine Bacteria (test code = 00217-9) Moderate [facility] CtrUrine casts detection by automated method 2023-11-01 10:12:00* Test Item Value Reference Range Interpretation Comme nts Urine Casts (test code = 65180-6) 0-[address] [facility] GsyC-[id number] 09:58:00* Test Item Value Reference Range Interpretation Comme nts D-Dimer (test code = 305902230) [address] [facility] InyZ-tzimf7060-27-25 09:58:00* Test Item Value Reference Range Interpretation Comme nts D-Dimer (test code = 264554848) [address] [facility] CtrAmylase [id number] 09:56:00* Test Item Value Reference Range Interpretation Comme nts Amylase Level (test code = 1798-8) [address] [facility] CtrSerum or plasma glucose measurement (mass/volume) 2023-11-01 09:56:00* Test Item Value Reference Range Interpretation Comme nts Random Glucose (test code = 2345-7) [address] [facility] CtrSerum or plasma urea nitrogen measurement (mass/volume)2023-11-01 09:56:00* Test Item Value Reference Range Interpretation Comme nts Blood Urea Nitrogen (test co de = 3094-0) [address] [facility] [id number] 09:56:00* Test Item Value Reference Range Interpretation Comme nts Aspartate Amino Transf (AST/ SGOT) (test code = NZA1747) [address] [facility] CtrBilirubin [id number] 09:56:00* Test Item Value Reference Range Interpretation Comme nts Total Bilirubin (test code = IPZ5907) 1.[address] [facility] CtrEstimated glomerular filtration rate (GFR) cfocqckcztroo7116-65-49 09:56:00* Test Item Value Reference Range Interpretation Comme [facility] Glomerular Filtration Rate C alc (test code = 569557287) > 60.[address] [facility] CtrBUN/creatinine [id number] 09:56:00* Test Item Value Reference Range Interpretation Comme [facility] BUN/Creatinine Ratio (test c ode = 20202950) 16.[address] [facility] [id number] 09:56:00* Test Item Value Reference Range Interpretation Comme nts Carbon Dioxide Level (test c ode = 40532212) [address] [facility] CtrAnion gap xqeakvqpqwy5383-24-21 09:56:00* Test Item Value Reference Range Interpretation Comme nts Anion Gap (test code = 87920121) 21.[address] [facility] CtrCalcium [id number] 09:56:00* Test Item Value Reference Range Interpretation Comme nts Calcium Level (test code = 74573511) 10.[address] [facility] CtrGlobulin [id number] 09:56:00* Test Item Value Reference Range Interpretation Comme nts Globulin (test code = 825520117) 3.[address] [facility] CtrALT (SGPT) ser/modg2810-71-34 09:56:00* Test Item Value Reference Range Interpretation Comme nts Alanine Aminotransferase (AL T/SGPT) (test code = 1742-6) [address] [facility] CtrAmylase fiqmt2000-08-73 09:56:00* Test Item Value Reference Range Interpretation Comme nts Amylase Level (test code = 1798-8) [address] [facility] LnzIkewqf4439-93-42 09:56:00* Test Item Value Reference Range Interpretation Comme nts Lipase (test code = 53973551) [address] [facility] CtrALP ser/babm1924-33-14 09:56:00* Test Item Value Reference Range Interpretation Comme nts Total Alkaline Phosphatase ( test code = 6768-6) 59 [facility] [id number] 09:45:00* Test Item Value Reference Range Interpretation Comme nts Urine HCG, Qualitative (test code = 2106-3) [facility]IVE [facility] [id number] 09:45:00* Test Item Value Reference Range Interpretation Comme nts Urine HCG, Qualitative (test code = 2106-3) NEGATIVE [facility] CtrColor of Urine by [id number] 09:44:00* Test Item Value Reference Range Interpretation Comme nts Urine Color (test code = 85100-6) Yellow [facility] CtrAppearance of [id number] 09:44:00* Test Item Value Reference Range Interpretation Comme nts Urine Appearance (test code = 5767-9) Cloudy [facility] CtrUrine glucose [id number] 09:44:00* Test Item Value Reference Range Interpretation Comme nts Urine Glucose (UA) (test cod e = 2349-9) Negative [facility] CtrBilirubin [id number] 09:44:00* Test Item Value Reference Range Interpretation Comme nts Urine Bilirubin (test code = 794640719) Negative [facility] CtrKetones [id number] 09:44:00* Test Item Value Reference Range Interpretation Comme nts Urine Ketones (test code = 12758281) Negative [facility] CtrSpecific gravity of Urine by Automated test strip 2023-11-01 09:44:00* Test Item Value Reference Range Interpretation Comme nts Urine Specific [place] (test code = 61584-7) 1.[address] [facility] CtrUrine blood [id number] 09:44:00* Test Item Value Reference Range Interpretation Comme nts Urine Blood (test code = 32022-3) Negative [facility] CtrpH [id number] 09:44:00* Test Item Value Reference Range Interpretation Comme nts Urine pH (test code = 2756-5) 6.[address] [facility] CtrProtein [id number] 09:44:00* Test Item Value Reference Range Interpretation Comme nts Urine Protein (test code = 46236683) Negative [facility] CtrUrobilinogen, urine, [id number] 09:44:00* Test Item Value Reference Range Interpretation Comme nts Urine Urobilinogen (test cod e = 006535607) 1.[address] [facility] CtrUrine nitrate gqkwlcdok2604-27-08 09:44:00* Test Item Value Reference Range Interpretation Comme [facility] Urine Nitrate (test code = 44708-5) Negative [facility] leukocyte esterase ofwguuaib8861-81-85 09:44:00* Test Item Value Reference Range Interpretation Comme [facility] Urine Leukocyte Esterase (te st code = 976823647) Negative [facility] CtrAbsolute eosinophil [id number] 09:41:00* Test Item Value Reference Range Interpretation Comme [facility] Eosinophils # (Auto) (test c ode = SFN9757) 0.[address] [facility] CtrRBC [id number] 09:41:00* Test Item Value Reference Range Interpretation Comme nts Red Blood Count (test code = 54768616) 4.[address] [facility] BbpQowwpimeeo2362-65-17 09:41:00* Test Item Value Reference Range Interpretation Comme nts Hematocrit (test code = 71868487) 41.[address] [facility] CtrMCV (mean corpuscular volume) determination 2023-11-01 09:41:00* Test Item Value Reference Range Interpretation Comme [facility] Mean Corpuscular Volume (christian t code = 40641-1) 87.[address] [facility] CtrMean corpuscular hemoglobin (MCH) determination 2023-11-01 09:41:00* Test Item Value Reference Range Interpretation Comme [facility] Mean Corpuscular Hemoglobin (test code = 85819080) 29.[address] [facility] CtrMean corpuscular hemoglobin concentration (MCHC) tuynnegstdwzg4687-37-93 09:41:00* Test Item Value Reference Range Interpretation Comme [facility] Mean Corpuscular Hemoglobin Concent (test code = 19390243) 33.[address] [facility] CtrRBC distribution width coefficient of variation 2023-11-01 09:41:00* Test Item Value Reference Range Interpretation Comme [facility] Red Cell Distribution Width (test code = 64468200) 13.[address] [facility] CtrPlatelet [id number] 09:41:00* Test Item Value Reference Range Interpretation Comme [facility] Platelet Count (test code = 09841794) [address] [facility] CtrMean platelet [id number] 09:41:00* Test Item Value Reference Range Interpretation Comme [facility] Mean Platelet Volume (test c ode = 66725733) 9.[address] [facility] CtrNeutrophils seg % [id number] 09:41:00* Test Item Value Reference Range Interpretation Comme [facility] Neutrophils (%) (Auto) (test code = 91973-4) 51.[address] [facility] CtrAbsolute immature granulocyte [id number] 09:41:00* Test Item Value Reference Range Interpretation Comme [facility] Absolute Immature Granulocyt e (auto (test code = 35535-2) 0.[address] [facility] CtrBlood band neutrophils count (number/volume) 2023-11-01 09:41:00* Test Item Value Reference Range Interpretation Comme [facility] Neutrophils # (Auto) (test c ode = 09774-7) 5.[address] [facility] CtrAbsolute lymphocyte qfczu9522-03-26 09:41:00* Test Item Value Reference Range Interpretation Comme [facility] Lymphocytes # (Auto) (test c ode = 00788-4) 3.[address] [facility] CtrAbsolute basophil [id number] 09:41:00* Test Item Value Reference Range Interpretation Comme [facility] Basophils # (Auto) (test cod e = 23623358) 0.[address] [facility] CtrAbsolute NRBC [id number] 09:41:00* Test Item Value Reference Range Interpretation Comme nts Nucleated Red Blood Cells # (test code = 258784768) [address] [facility] Ctrpregnancy test, [id number] 15:05:00* Test Item Value Reference Range Interpretation Comme nts HCG (test code = HCG) negative [facility] Programpregnancy test, [id number] 15:57:00* Test Item Value Reference Range Interpretation Comme nts HCG (test code = HCG) [facility] [Presence] in Respiratory specimen by [facility] with probe [id number] 00:00:00* Test Item Value Reference Range Interpretation Comme nts SARS coronavirus 2 RNA [Presence] in Respiratory specimen by [facility] with probe detection (test code = 10391-1) not detected not detected [facility]
[2024-01-21] MEDS ORDERED: AZITHROMYCIN 250 MG TAB ONE (06:01)
[2024-01-21] MEDS ORDERED: CEFTRIAXONE 2000 MG/VIAL ONE (06:02)
[2024-01-21] MEDS ORDERED: ONDANSETRON 4 MG (ODT) TAB ONE (06:02)
[2024-01-21] MEDS ORDERED: LIDOCAINE 1% MPF 5 ML VIAL ONE (06:03)
[2024-01-21 06:30] LABS: Specific Gravity 1.027 (1.005-1.030); Sqamous Epithelial 20-50 /HPF (None Seen); Urine Bacteria <20 /HPF (<20); Urine Bilirubin NEGATIVE (Negative); Urine Blood Negative (Negative); Urine Clarity Extremely Turbid (Clear); Urine Color Yellow (Yellow); Urine Culture Reflex Order NOT NEEDED; Urine Glucose NEGATIVE (Negative); Urine Ketones 1+ (Negative); Urine Microscopic Reflex YN ORDER UMIC; Urine Mucus 2+ /HPF (None Seen); Urine Nitrite NEGATIVE (Negative); Urine Protein TRACE (Negative); Urine RBC <5 /HPF (None Seen); Urine Urobilinogen Normal (Normal); Urine WBC <5 /HPF (<5); Urine pH 6.5 (5.0-7.0)
[2024-01-21 06:32] LABS: Specific Gravity > 1.030 (1.005-1.030)
--- NOTE | 2024-01-21 06:35 | ER ---
Nurse's Notes [facility] Name: Billy Richardson Age: 23 yrs Sex: Female : 2000 Arrival Date: 01/21/2024 Time: 05:33 Bed 5 Private MD: Diagnosis: Unspecified sexually transmitted disease-exposure and fear of STD;UTI/ Urinary tract infection, site not specified Presentation: 01/20 05:46 Chief complaint: Patient states: exposure to Chlamydia from boyfriend. Reports pelvic cp4 pain and discharge. Coronavirus screen: Client denies travel out of the [place] in the last 14 days. Ebola Screen: Patient negative for fever greater than or equal to 101.5 degrees Fahrenheit, and additional compatible Ebola Virus Disease symptoms Patient denies exposure to infectious person. Patient denies travel to an Ebola-affected area in the 21 days before illness onset. No symptoms or risks identified at this time. Initial Sepsis Screen: Does the patient meet any 2 criteria? HR > 90 bpm. No. Patient's initial sepsis screen is negative. Does the patient have a suspected source of infection? No. Patient's initial sepsis screen is negative. Risk Assessment: Do you want to hurt yourself or someone else? Patient reports no desire to harm self or others. Onset of symptoms is unknown. 05:46 Method Of Arrival: Ambulatory cp4 05:46 Acuity: JULIO CESAR 4 cp4 Triage Assessment: 05:48 General: Appears in no apparent distress. comfortable, Behavior is calm, cooperative, cp4 appropriate for age. Pain: Complains of pain in pelvis Pain currently is 10 out of 10 on a pain scale. EENT: No signs and/or symptoms were reported regarding the EENT system. Neuro: Level of Consciousness is awake, alert, obeys commands, Oriented to person, place, time, situation. Cardiovascular: Patient's skin is warm and dry. Respiratory: Airway is patent Respiratory effort is even, unlabored. GI: No signs and/or symptoms were reported involving the gastrointestinal system. : No signs and/or symptoms were reported regarding the genitourinary system. Derm: No signs and/or symptoms reported regarding the dermatologic system. Musculoskeletal: No signs and/or symptoms reported regarding the musculoskeletal system. 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 - Infectious Disease History:: Denies. - Social history:: Smoking status: Patient denies any tobacco usage or history of. - Family history:: not pertinent. Screenin:50 [facility] ED Fall Risk Assessment (Adult) History of falling in the last 3 months, cp4 including since admission No falls in past 3 months (0 pts) Confusion or Disorientation No (0 pts) Intoxicated or Sedated No (0 pts) Impaired Gait No (0 pts) Mobility Assist Device Used No (0 pt) Altered Elimination No (0 pt) Score/Fall Risk Level 0 - 2 = Low Risk Oriented to surroundings, Maintained a safe environment, Assessed \T\ reinforced patient's understanding of fall precautions, Hourly rounding (assess needs \T\ fall precautionary measures) done. Abuse screen: Denies threats or abuse. Nutritional screening: No deficits noted. Tuberculosis screening: No symptoms or risk factors identified. Assessment: 05:50 Reassessment: No changes from previously documented assessment. cp4 Vital Signs: 05:46 BP 146 / 100; Pulse 100; Resp 16; Temp 98.4; Pulse Ox 100% ; Weight 67.59 kg; Height 5 cp4 ft. 5 in. ; Pain 10/10; 05:46 Body Mass Index 24.79 (67.59 kg, 165.1 cm) cp4 05:46 Pain Scale: Adult cp4 ED Course: 05:39 Patient arrived in ED. ra3 05:40 Jamarcus Peña MD is Attending Physician. giorgi 05:46 Danuta Coates is Primary Nurse. cp4 05:48 Triage completed. cp4 05:48 Arm band placed on right wrist. Patient placed in waiting room. cp4 05:50 Bed in low position. Call light in reach. Side rails up X 1. cp4 05:50 No provider procedures requiring assistance completed. Patient did not have IV access cp4 during this emergency room visit. 06:13 PREGU Sent. ha1 06:13 Urinalysis w/ reflexes Sent. ha1 06:34 Marybeth Rivera MD is Referral Physician. giorgi 06:41 Provided Education on: STDs. cp4 Administered Medications: 06:12 Drug: Rocephin (cefTRIAXone) IM 1 grams IM once Route: IM; Site: right ventrogluteal; ha1 06:40 Follow up: Response: No adverse reaction cp4 06:12 Drug: Ondansetron Oral Disintegrating Tablet Oral Disintegrating Tablet 4 mg PO once ha1 Route: PO; 06:41 Follow up: Response: No adverse reaction cp4 06:13 Drug: AZITHromycin PO 1 grams PO once Route: PO; ha1 06:40 Follow up: Response: No adverse reaction cp4 06:40 Drug: Ciprofloxacin PO 250 mg PO once Route: PO; cp4 06:41 Follow up: Response: No adverse reaction cp4 Medication: 05:50 VIS not applicable for this client. cp4 Outcome: 06:34 Discharge ordered by . giorgi 06:41 Discharged to home ambulatory, cp4 06:41 Condition: stable 06:41 Discharge instructions given to patient, Instructed on discharge instructions, follow up and referral plans. medication usage, Demonstrated understanding of instructions, follow-up care, medications, Prescriptions given X 4, 06:42 Patient left the ED. cp4 Signatures: Jamarcus Peña MD MD cha Ayala, Heidy, RN RN ha1 Danuta Coates cp4 Etelvina Osborn 3
--- NOTE | 2024-01-21 06:35 | EDPHYS ---
Physician Documentation [facility] [place]akeem Name: Billy White Age: 23 yrs Sex: Female : 2000 Arrival Date: 01/21/2024 Time: 05:33 Bed 5 Private MD: NATALIE Physician Jamarcus Peña HPI: 01/20 05:47 This 23 yrs old Black Female presents to ER via Unassigned with complaints of Pelvic giorgi Pain. 05:47 The patient presents with a possible exposure to a sexually transmitted disease, giorgi vaginal discharge, that is a small amount of clear discharge. Onset: The symptoms/episode began/occurred 3 day(s) ago. Modifying factors: The symptoms are alleviated by nothing, the symptoms are aggravated by nothing. Associated signs and symptoms: The patient has no apparent associated signs or symptoms. Severity of symptoms: At their worst the symptoms were mild, in the emergency department the symptoms are unchanged. The patient is sexually active, reportedly has a single partner. The patient has not experienced similar symptoms in the past. 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 - Infectious Disease History:: Denies. - Social history:: Smoking status: Patient denies any tobacco usage or history of. - Family history:: not pertinent. ROS: 05:47 Constitutional: Negative for fever, chills, and weight loss, Eyes: Negative for injury, giorgi pain, redness, and discharge, ENT: Negative for injury, pain, and discharge, Neck: Negative for injury, pain, and swelling, Cardiovascular: Negative for chest pain, palpitations, and edema, Respiratory: Negative for shortness of breath, cough, wheezing, and pleuritic chest pain, Abdomen/GI: Negative for abdominal pain, nausea, vomiting, diarrhea, and constipation, Back: Negative for injury and pain, MS/Extremity: Negative for injury and deformity, Skin: Negative for injury, rash, and discoloration, Neuro: Negative for headache, weakness, numbness, tingling, and seizure, Psych: Negative for depression, anxiety, suicide ideation, homicidal ideation, and hallucinations, Allergy/Immunology: Negative for hives, rash, and allergies, Endocrine: Negative for neck swelling, polydipsia, polyuria, polyphagia, and marked weight changes, Hematologic/Lymphatic: Negative for swollen nodes, abnormal bleeding, and unusual bruising, 05:47 : Positive for vaginal discharge, boyfriend has chlamydia, Exam: 05:47 Constitutional: This is a well developed, well nourished patient who is awake, alert, giorgi and in no acute distress. Head/Face: Normocephalic, atraumatic. Eyes: Pupils equal round and reactive to light, extra-ocular motions intact. Lids and lashes normal. Conjunctiva and sclera are non-icteric and not injected. Cornea within normal limits. Periorbital areas with no swelling, redness, or edema. ENT: Nares patent. No nasal discharge, no septal abnormalities noted. Tympanic membranes are normal and external auditory canals are clear. Oropharynx with no redness, swelling, or masses, exudates, or evidence of obstruction, uvula midline. Mucous membranes moist. Neck: Trachea midline, no thyromegaly or masses palpated, and no cervical lymphadenopathy. Supple, full range of motion without nuchal rigidity, or vertebral point tenderness. No Meningismus. Chest/axilla: Normal chest wall appearance and motion. Nontender with no deformity. No lesions are appreciated. Cardiovascular: Regular rate and rhythm with a normal S1 and S2. No gallops, murmurs, or rubs. Normal PMI, no JVD. No pulse deficits. Respiratory: Lungs have equal breath sounds bilaterally, clear to auscultation and percussion. No rales, rhonchi or wheezes noted. No increased work of breathing, no retractions or nasal flaring. Abdomen/GI: Soft, non-tender, with normal bowel sounds. No distension or tympany. No guarding or rebound. No evidence of tenderness throughout. Skin: Warm, dry with normal turgor. Normal color with no rashes, no lesions, and no evidence of cellulitis. MS/ Extremity: Pulses equal, no cyanosis. Neurovascular intact. Full, normal range of motion., bilateral aka Neuro: Awake and alert, GCS 15, oriented to person, place, time, and situation. Cranial nerves II-XII grossly intact. Motor strength 5/5 in all extremities. Sensory grossly intact. Cerebellar exam normal. Normal gait. Vital Signs: 05:46 BP 146 / 100; Pulse 100; Resp 16; Temp 98.4; Pulse Ox 100% ; Weight 67.59 kg; Height 5 cp4 ft. 5 in. ; Pain 10/10; 05:46 Body Mass Index 24.79 (67.59 kg, 165.1 cm) cp4 05:46 Pain Scale: Adult cp4 MDM: 05:40 Medical Screening Exam initiated [facility] 05:58 Differential diagnosis: usama infection, ovarian cyst, pelvic inflammatory disease, giorgi urinary tract infection. Data reviewed: vital signs, nurses notes, lab test result(s). Consideration of Admission/Observation Escalation of care including admission/observation considered. I considered the following discharge prescriptions or medication management in the emergency department Medications were administered in the Emergency Department. See MAR. Test considered but Not performed: Labs: no labs, no cbc, no comp met. Historians other than the Patient: pt well informed. Care significantly affected by the following chronic conditions: none. 01/20 05:47 Order name: Urinalysis w/ reflexes; Complete Time: 06:33 [facility] 01/20 05:47 Order name: PREGU; Complete Time: 06:33 giorgi Administered Medications: 06:12 Drug: Rocephin (cefTRIAXone) IM 1 grams IM once Route: IM; Site: right ventrogluteal; ha1 06:40 Follow up: Response: No adverse reaction cp4 06:12 Drug: Ondansetron Oral Disintegrating Tablet Oral Disintegrating Tablet 4 mg PO once ha1 Route: PO; 06:41 Follow up: Response: No adverse reaction cp4 06:13 Drug: AZITHromycin PO 1 grams PO once Route: PO; ha1 06:40 Follow up: Response: No adverse reaction cp4 06:40 Drug: Ciprofloxacin PO 250 mg PO once Route: PO; cp4 06:41 Follow up: Response: No adverse reaction cp4 Disposition Summary: 01/21/24 06:34 Discharge Ordered Notes: Location: Home [facility] Problem: new giorgi Symptoms: have improved giorgi Condition: Stable giorgi Diagnosis - Unspecified sexually transmitted disease - exposure and fear of STD giorgi - UTI/ Urinary tract infection, site not specified giorgi Followup: giorgi - With: Private Physician - When: 2 - 3 days - Reason: Recheck today's complaints, Continuance of care, Re-evaluation by your physician Followup: giorgi - With: Marybeth Rivera MD - When: 2 - 3 days - Reason: Recheck today's complaints, Re-evaluation by your physician Discharge Instructions: - Discharge Summary Sheet giorgi - Dysuria giorgi - Pelvic Pain, Female giorgi - Pelvic Pain, Female, [id number] giorgi - Preventing Sexually Transmitted Infections, Adult [facility] Forms: - Medication Reconciliation Form [facility] - Antibiotic Education giorgi - Prescription Opioid Use giorgi - Patient Portal Instructions [facility] - Leadership Thank You Letter [facility] Prescriptions: - ondansetron 4 mg Oral Tablet,disintegrating - take 1 tablet ORAL route every 6-8 hours for 5 days; 20 tablet; Refills: 0, [facility] Product Selection Permitted - Cipro 250 mg Oral tablet - take 1 tablet ORAL route every 12 hours; 10 tablet; Refills: 0, Product [facility] Selection Permitted - Doxycycline Hyclate 100 mg Oral Tablet - take 1 tablet ORAL route every 12 hours; 20 tablet; Refills: 0, Product [facility] Selection Permitted - Fluconazole 200 mg Oral tablet - take 1 tablet ORAL route daily ONE TAB PO WEEKLY X 3 WEEKS; 3 tablet; Refills: [facility] 0, Product Selection Permitted Signatures: Dispatcher [employer] Jamarcus Lucero MD MD cha Ayala, Heidy, RN RN ha1 Danuta Coates cp4
[2024-01-21] MEDS ORDERED: CIPROFLOXACIN HCL 500 MG TAB ONE (06:36)
[2024-01-21 06:50] VITALS: BP 146/100; TEMP 98.4; O2SAT 100
== END 2024-01-21 06:42 | disposition home or self-care (01) ==
LOC: ER 05:33
DX: N39.0 Urinary tract infection, site not specified (principal); Z11.3 Encounter for screening for infections with a predominantly sexual mode of transmission
CPT/HCPCS: 81001; 81025; 96372; 99284; Q0162; J2003; J0696